=== PATIENT | male | born 1990 | race Caucasian/White ===

== ENCOUNTER 2018-02-26 11:05 | Emergency (ER) | payer BC ==
[2018-02-26 13:08] VITALS: BP 153/88
--- NOTE | 2018-02-26 14:20 | UC ---
General HPI - HPI Summary HPI Summary: pt had gastric bypass in 2016. pt states "on occasion, I eat to fast and things feel stuck". last pm he ate to fast so he forced himself to vomit x2. the second time, he noted some blood in the mucous. this has not reoccurred and he denies any associated cp, sob, abdominal pain, n/ v/d. pt denies any black/tarry stool or blood in stool. pt admits to having the same happen on more that one occasion including the blood. his gastric bypass surgeon attributes it to his consuming food to fast. pt states he feels fine but just wanted to be checked and hid pcp is not in. - History of Current Complaint Chief Complaint: UCGI Stated Complaint: VOMITING Time Seen by Provider: 02/26/18 14:13 Pain Intensity: 0 - Allergy/Home Medications Allergies/Adverse Reactions: Allergies Allergy/AdvReac Type Severity Reaction Status Date / Time No Known Allergies Allergy Verified 04/30/13 12:37 Home Medications: Home Medications Cyanocobalamin (Vitamin B-12) [Vitamin B-12] 1,000 mcg PO DAILY 02/26/18 [ History Confirmed 02/26/18] Thiamine TAB* [Vitamin B-1 TAB*] 100 mg PO DAILY 02/26/18 [History Confirmed ] amLODIPine TAB* [Norvasc 5 mg TAB*] 5 mg PO DAILY 02/26/18 [History Confirmed ] PMH/Surg Hx/FS Hx/Imm Hx - Additional Past Medical History Additional PMH: GASTRIC BYPASS Cardiovascular History: Hypertension - Surgical History Surgical History: None Surgery Procedure, Year, and Place: 05/27/15 - GASTRIC BYPASS - [facility] - Social History Alcohol Use: Occasionally Substance Use Type: None Smoking Status (MU): Never Smoked Tobacco - Immunization History Vaccination Up to Date: Yes Review of Systems All Other Systems Reviewed And Are Negative: Yes Constitutional: Positive: Negative Skin: Positive: Negative Eyes: Positive: Negative ENT: Positive: Negative Respiratory: Positive: Negative Cardiovascular: Positive: Negative Gastrointestinal: Positive: Negative Genitourinary: Positive: Negative Motor: Positive: Negative Neurovascular: Positive: Negative Musculoskeletal: Positive: Negative Neurological: Positive: Negative Psychological: Positive: Negative Physical Exam Triage Information Reviewed: Yes Vital Signs: Initial Vital Signs Temp 98 F 02/26/18 13:02 Pulse 85 02/26/18 13:02 Resp 16 02/26/18 13:02 BP 153/88 02/26/18 13:02 Pulse Ox 99 02/26/18 13:02 Vital Signs Reviewed: Yes Eyes: Positive: Conjunctiva Clear ENT: Positive: Pharynx normal, TMs normal. Negative: Nasal congestion, Nasal drainage Neck: Positive: Supple, Nontender, No Lymphadenopathy Respiratory: Positive: Lungs clear, Normal breath sounds Cardiovascular: Positive: RRR, No Murmur Abdomen Description: Positive: Nontender, No Organomegaly, Soft, Other: - rectal refused by pt. Negative: Bruit, Distended, Guarding Bowel Sounds: Positive: Present Musculoskeletal: Positive: ROM Intact Neurological: Positive: Alert Psychological: Positive: Age Appropriate Behavior Skin Exam: Normal Course/Dx - Differential Dx - Multi-Symptom Differential Diagnoses: Other - non toxic, no acute abdomen. pt denies blood in stool to suggest active bleed, he did refuse rectal exam. no concern for [place]. hx same as well. No indication for ER transfer. pt agrees to go to Er for any re occuring symptoms or worsening. - Diagnoses Provider Diagnosis: Hematemesis Discharge - Sign-Out/Discharge Documenting (check all that apply): Patient Departure All imaging exams completed and their final reports reviewed: No Studies - Discharge Plan Condition: Stable Disposition: HOME Patient Education Materials: Hematemesis (ED) Referrals: Stephane Aguila MD [Primary Care Provider] - If Needed Additional Instructions: GO TO ER IMMEDIATELY FOR ANY REOCCURRENCE OR WORSENING - Billing Disposition and Condition Condition: STABLE Disposition: Home - Attestation Statements Provider Attestation: I was available for consult. This patient was seen by the BILLIE. The patient was not presented to, seen by, or examined by me. -Yuridia
== END 2018-02-26 14:30 | disposition home or self-care (01) ==
LOC: UCCORT 11:05
DX: K92.0 Hematemesis (principal); Z98.84 Bariatric surgery status; I10 Essential (primary) hypertension
CPT/HCPCS: 99211; G0463

== ENCOUNTER 2019-04-22 12:56 | Emergency (ER) | payer BC ==
--- NOTE | 2019-04-22 13:58 | UC ---
Minor Trauma HPI - HPI Summary HPI Summary: Patient is a 28yo male presenting with b/l anterolateral rib pain x6 days. States he "thinks he broke his ribs or something." States it happened 6 days ago while in [place]. States he was walking in sandals on a marble floor and fell forward. Notes pain with "certain movements and especially with deep breaths." Notes mild nonproductive cough. Denies coughing up blood. Denies fever and chills. Unsure of swelling or bruising but "thinks he may be swollen. " - History of Current Complaint Stated Complaint: SP FALL-RIB PAIN Hx Obtained From: Patient - Allergies/Home Medications Allergies/Adverse Reactions: Allergies Allergy/AdvReac Type Severity Reaction Status Date / Time No Known Allergies Allergy Verified 04/22/19 13:55 Home Medications: Home Medications Cyanocobalamin (Vitamin B-12) [Vitamin B-12] 1,000 mcg PO DAILY 02/26/18 [ History Confirmed 04/22/19] Thiamine TAB* [Vitamin B-1 TAB*] 100 mg PO DAILY 02/26/18 [History Confirmed ] Acetaminophen [Acetaminophen Extra Strength] 1,000 - 2,000 mg PO Q8H PRN [History Confirmed 04/22/19] Multivit-Min/Iron/Folic Acid/K [Bariatric Mv-Iron 45 mg Cap] 1 each PO DAILY [History Confirmed 04/22/19] Multivitamin No.58/Vit D3/K [Multivitamins W/ A,B,D,E,] 1 cap PO DAILY 04/22/19 [History Confirmed 04/22/19] PMH/Surg Hx/FS Hx/Imm Hx - Surgical History Surgical History: None Surgery Procedure, Year, and Place: 05/27/15 - GASTRIC BYPASS - [facility] - Family History Known Family History: Positive: Non-Contributory - Social History Alcohol Use: Occasionally Substance Use Type: None Smoking Status (MU): Never Smoked Tobacco - Immunization History Vaccination Up to Date: Yes Review of Systems All Other Systems Reviewed And Are Negative: Yes Constitutional: Positive: Negative Skin: Positive: Negative Respiratory: Positive: Cough, Other - pain with deep breaths. Negative: Shortness Of Breath Cardiovascular: Positive: Negative Gastrointestinal: Positive: Negative Musculoskeletal: Positive: Arthralgia - b/l anterior ribs Neurological/Mental Status: Positive: Negative Physical Exam - Summary Physical Exam Summary: Vital Signs Reviewed: Yes A+Ox3, no distress Eyes: Conjunctiva Clear ENT: Hearing grossly normal Neck: Positive: Supple Respiratory: Positive: No respiratory distress, No accessory muscle use + CTA throughout no w/r Cardiovascular: RRR nl s1, s2 no m/r Musculoskeletal Exam: CHAWLA x 4 without difficulty, +TTP of b/l anterior/inferior ribs, no edema, no erythema or ecchymosis, no crepitus Neurological: Positive: Alert Psychological: Positive: age appropriate behavior Skin: Positive: no rash, no ecchymosis Vital Signs: Vital Signs (72 hours) 04/22/19 13:51 Temperature 98.5 F Pulse Rate 78 Respiratory 18 Rate Blood Pressure 171/108 (mmHg) O2 Sat by Pulse 100 Oximetry Diagnostics - Radiology b/l ribs Radiology Interpretation Completed By: Radiologist Summary of Radiographic Findings: IMPRESSION: No fracture of the ribs is noted. No pneumothorax is noted. Minor Trauma Course/Dx - Course Course Of Treatment: Negative radiographs. Discussed rib contusion with patient and symptomatic treatment. Discussed elevated blood pressure today and patient states he was recently taken off his htn meds. Instructed to follow up with pcp within next 2 weeks for reevaluation. Patient voiced understanding and agreed with treatment plan. - Differential Dx/Diagnosis Differential Diagnosis/HQI/PQRI: Contusion(s), Fracture Provider Diagnosis: Bilateral contusion of ribs Discharge ED - Sign-Out/Discharge Documenting (check all that apply): Patient Departure All imaging exams completed and their final reports reviewed: Yes - Discharge Plan Condition: Stable Disposition: HOME Patient Education Materials: Hypertension (ED), Rib Contusion (ED) Referrals: Stephane Aguila MD [Primary Care Provider] - 2 Weeks Additional Instructions: As discussed, your xrays did not show any abnormalities. You may use lidocaine patches over the counter (Salonpas) for relief of your rib pain. Continue with tylenol and ibuprofen as directed for pain relief. It is very important that you take deep breaths often and cough if you need to. This will help prevent respiratory infection from occurring. Follow up with your primary care provider if symptoms do not improve within 7 days. Go to the emergency department if you experience worsening pain, increased difficulty breathing, fever, or you cough up blood. Follow up with your primary care provider within the next 2 weeks for reevaluation of hypertension. - Billing Disposition and Condition Condition: STABLE Disposition: Home
[2019-04-22 14:02] VITALS: BP 171/108
== END 2019-04-22 14:49 | disposition home or self-care (01) ==
LOC: UCCORT 12:56
DX: S20.212A Contusion of left front wall of thorax, initial encounter (principal); S20.211A Contusion of right front wall of thorax, initial encounter; X58.XXXA Exposure to other specified factors, initial encounter; Y92.9 Unspecified place or not applicable
CPT/HCPCS: 71111; 99211; G0463